=== PATIENT | female | born 1970 | race Caucasian/White ===

== ENCOUNTER → 2017-03-02 | Outpatient (CLI) | payer OTHER ==
--- NOTE | 2017-03-02 21:55 | MR ---
EXAMINATION TYPE: MR cervical spine wo con DATE OF EXAM: 03/02/2017 COMPARISON: Prior MR cervical spine 09/02/2014 HISTORY: Neck pain, headaches, juanjo arm weakness TECHNIQUE: Multiplanar, multisequence images of the cervical spine were acquired. C2-C3: Right posterior paracentral extension endplate disc complex causes minimal anterolateral mass effect on the thecal sac. No significant foraminal encroachment or central stenosis. C3-C4: Small central posterior disc bulge causes minimal anterior mass effect on the thecal sac as on prior exam. No significant central stenosis or foraminal encroachment. C4-C5: Minimal posterior central disc bulge causes slight anterior mass effect on the thecal sac. No significant central stenosis. C5-C6: Small central posterior disc bulge causes slight anterior mass effect on the thecal sac. No si gnificant central stenosis. No foraminal encroachment. C6-C7: Small central posterior disc bulge causes only slight anterior mass effect on the thecal sac. C7-T1: No evidence for degenerative disc disease. No disc bulge/herniation or protrusion. No Canal stenosis. Foramina are patent bilaterally. Cervical segments are intact. There is normal alignment. Cervical spinal cord is of normal signal. Craniovertebral junction relationships are within normal limits. IMPRESSION: Essentially stable exam. No significant central stenosis, foraminal encroachment. Mild posterior disc bulge is greatest at C6-7, C5-6
== END | disposition home or self-care (01) ==
LOC: RADMRIMAIN 19:30
PROVIDERS: ATTEND Psychiatry & Neurology Neurology
DX: M50.21 Other cervical disc displacement, high cervical region (principal); Z88.1 Allergy status to other antibiotic agents
CPT/HCPCS: 72141

== ENCOUNTER → 2019-09-13 | Outpatient (CLI) | payer OTHER ==
[2019-09-13 13:20] LABS: Basophils % (A) 1 %; Eosinophils # (A) 0.1 k/uL (0-0.7); Eosinophils % (A) 1 %; HCT 45.2 % (34.0-46.0); HGB 14.5 gm/dL (11.4-16.0); Lymphocytes # (A) 1.3 k/uL (1.0-4.8); Lymphocytes % (A) 18 %; MCH 30.4 pg (25.0-35.0); MCV 95.1 fL (80.0-100.0); Mean Platelet Volume 7.2; Monocytes # (A) 0.3 k/uL (0-1.0); Monocytes % (A) 4 %; Neutrophils # (A) 5.6 k/uL (1.3-7.7); Neutrophils % (A) 76 %; Platelet Count 237 k/uL (150-450); RBC 4.76 m/uL (3.80-5.40); RDW 13.2 % (11.5-15.5); WBC 7.4 k/uL (3.8-10.6)
== END | disposition home or self-care (01) ==
LOC: LABWHC1 12:07
PROVIDERS: ATTEND Obstetrics & Gynecology Obstetrics
DX: Z01.818 Encounter for other preprocedural examination (principal); Z30.2 Encounter for sterilization; Z11.59 Encounter for screening for other viral diseases; N92.0 Excessive and frequent menstruation with regular cycle
CPT/HCPCS: 36415; 85025; 87635

== ENCOUNTER → 2019-09-17 | Day surgery (SDC) | payer OTHER ==
[2019-09-11 14:40] VITALS: BMI 29.2
--- NOTE | 2019-09-12 09:50 | P.HPOB ---
History of Present Illness H&P Date: 09/12/19 Chief Complaint: menorrhagia This is a pleasant 48yo female with c/o heavy menstrual bleeding. she states the flow has been worsening over the last few months. her menses can be irregular in nature and last for up to 7 days. she had a TVUS at [facility] revelaing a 10 cm uterus and no discrete fibroids. she does elect H DC EA for treatment of her HMB. she isnt currently using any form of contraception and TL at the time of EA is discussed as well Review of Systems Constitutional: Denies chills, Denies fatigue, Denies fever, Denies lethargy Ears, nose, mouth and throat: Denies headache Cardiovascular: Denies edema Respiratory: Denies dyspnea Gastrointestinal: Denies constipation, Denies diarrhea, Denies nausea, Denies vomiting Genitourinary: Reports Menstruation: Reports cycle variable, Reports menses 1-7 days, Reports period heavy Past Medical History Past Medical History: Diabetes Mellitus, Eye Disorder, Osteoarthritis (OA), Thyroid Disorder Additional Past Medical History / Comment(s): Migraines,dx at [facility] with [place] disease, ddd, 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 breast bx. Past Anesthesia/Blood Transfusion Reactions: No Reported Reaction Additional Past Anesthesia/Blood Transfusion Reaction / Comment(s): mom had blood transfusion and received hepatitis C Smoking Status: Former smoker - Past Family History Father Family Medical History: Cancer Additional Family Medical History / Comment(s): Father at age 47 from complications from a motor vehicle accident. Mother Family Medical History: Diabetes Mellitus, Liver Disease, Thyroid Disorder Additional Family Medical History / Comment(s): Mother is alive at age 65 with history of diabetes, hypothyroidism, lupus,hepatitis C. maternal grandmother- hx of uterine breast,lung ca. maternal grandfather-hx throat and lung ca Brother(s) Additional Family Medical History / Comment(s): Patient has 1 brother that is addicted to drugs she does not have any sisters. She has 4 children of her own that are healthy. Medications and Allergies Home Medications Medication Instructions Recorded Confirmed Type Levothyroxine Sodium [Synthroid] 137 mcg PO DAILY 04/29/15 09/11/19 History Allergies Allergy/AdvReac Type Severity Reaction Status Date / Time cephalexin monohydrate Allergy Unknown Verified 09/11/19 14:03 [From Keflex] Exam Osteopathic Statement: *. No significant issues noted on an osteopathic structural exam other than those noted in the History and Physical/Consult. - OBG Physical Exam Abdomen: abdomen soft and non tender no masses are appreciated. Abdomen: bowel sounds normal Vulva: both: normal Vagina: normal appearing for age. Cervix: normal appearing with no masses Uterus: enlarged, no nodular Adnexa: both: normal Anus/Rectum: normal perianal skin Assessment and Plan (1) Menorrhagia Status: Acute Code(s): N92.0 - EXCESSIVE AND FREQUENT MENSTRUATION WITH REGULAR CYCLE SNOMED Code(s): 524801962 (2) Enlarged uterus Status: Acute Code(s): N85.2 - HYPERTROPHY OF UTERUS SNOMED Code(s): 289016067 (3) Family planning Status: Acute Code(s): Z30.09 - ENCOUNTER FOR OTH GENERAL CNSL AND ADVICE ON CONTRACEPTION SNOMED Code(s): 510153364 Plan: this pleasant 49 yo presented to the office with complaints of HMB, after discussion on treatment options she elected H DC EA. she understands that this isnt contraception and she will also need a definitive form of contraception. She elects LTL at the time of surgery as well. US reviewed with pt in detail as well. risk of surgery reviewed in detail including but not limited to infection bleeding damage to bladder bowel or ureteric injury. she states understanding and wishes to proceed with surgery.
[~2019-09-17] MED LIST: ACETAMINOPHEN IV (For NPO) 1,000 MG in EMPTY BAG 1 BAG IVPB ONE; BUPIVACAINE (PF) 0.25% 30 ML VIAL SQ ONE; DEXAMETHASONE SOD PHOSPHATE 10 MG/ML 1 ML VIAL IV ONE; GLYCOPYRROLATE 0.2 MG/ML 2 ML VIAL ONE; HYDROcodone/APAP 5-325MG 1 EACH TAB PO ONE; KETOROLAC 30 MG/ML 1 ML VIAL ONE; LACTATED RINGERS 1,000 ML IV ONE; LACTATED RINGERS 1,000 ML IV SCH; LIDOCAINE 1% (10MG/ML) FOR IV START INTRADERMA PRN; LIDOCAINE 1% INJ 10MG/ML (20 ML MDV) ONE; MIDAZOLAM 2 MG/2 ML VIAL IV PRN; MIDAZOLAM 2 MG/2 ML VIAL ONE; NEOSTIGMINE 1 MG/ML 10 ML VIAL ONE; ONDANSETRON 4 MG/2 ML VIAL IVP ONE; PROPOFOL 10 MG/ML 20 ML VIAL IV ONE; Pre Op ABX Message 1 EACH MISC MISCELLANE ONE; ROCURONIUM BROMIDE 10 MG/ML 5 ML VIAL IV ONE; SUCCINYLCHOLINE CHLORIDE 100 MG/5 ML SYR IV ONE; diphenhydrAMINE 50 MG/ML 1 ML VIAL IVP ONE; fentaNYL (PF) 50 MCG/ML 2 ML AMP IV PRN; fentaNYL (PF) 50 MCG/ML 2 ML AMP ONE
[2019-09-17 07:19] LABS: Glucose,Whole Blood 97 mg/dL (75-99)
--- NOTE | 2019-09-17 08:26 | P.OP ---
Date of Procedure: 09/17/19 Preoperative Diagnosis: Undesired fertility, menorrhagia Postoperative Diagnosis: Same Procedure(s) Performed: Laparoscopic tubal ligation with Filshie clips, hysteroscopy, dilation and curettage, endometrial ablation Anesthesia: ALLIEA Surgeon: Maria Victoria Farrell Estimated Blood Loss (ml): 5 IV fluids (ml): 500 Urine output (ml): 100 Pathology: other (Endometrial curettings) Condition: stable Disposition: PACU Indications for Procedure: This pleasant 49-year-old female presented to the office with complaints of heavy menstrual bleeding. Options were reviewed and patient elected endometrial ablation. Laparoscopic tubal ligation is discussed with the patient as a means for permanent sterilization given endometrial ablation. Patient stated understanding and elected to proceed. Risks of procedure were reviewed and patient stated understanding. Operative Findings: Enlarged uterine cavity at 10 cm, proliferative endometrium was noted on hysteroscopy, normal pelvic anatomy was appreciated on laparoscopy during tubal ligation. Right hemorrhagic cyst is appreciated. Description of Procedure: Patient in the preoperative area procedure is reviewed and all questions are a nswered. Risks were reviewed previously with this patient and patient denies concerns or questions. Patient was taken back to the operating suite where general anesthesia was obtained without difficulty by the anesthesia department. She was then prepped and draped in the normal sterile fashion in the dorsal lithotomy position. A regular catheter was used to drain the bladder clear yellow urine. A weighted speculum was placed in the posterior vaginal vault intralipids the cervix is visualized and grasped with single-tooth tenaculum and an acorn uterine manipulator was advanced into the cervix as a means to manipulate the uterus throughout the procedure. Attention was then turned the patient's abdomen where in the umbilical fold a small skin incision is made. A Veress needle is placed through the skin incision and toward the abdominal cavity. Once the Veress needle was deemed to be in the proper position with a drop of pressure with CO2 insufflation. Review liters of gas or used to obtain pneumoperitoneum. At this time the 5 mm trocar and sleeve with the laparoscope in place placed through this incision for the pneumoperitoneum. The above-noted findings were visualized. At this time and additional port site was placed in the right midportion of the abdomen and this was placed under direct visualization. The Filshie clip applicator was then placed through the trocar a nd the left fallopian tube is grasped and. This was repeated on the low side. No bleeding was noted from the fallopian tubes all instruments removed from the patient's abdomen. Incisions were closed with Vicryl in a subcapsular fashion. Steri-Strips and sterile dressings are applied. Attention then turned to the patient's vaginal vault the acorn uterine manipulator was removed the uterus was sounded to 10 cm. The endocervical canal was then dilated. Hysteroscope was placed through the cervix and toward the intracavity proliferative endometrium was noted. At this time the NovaSure device was opened and set the appropriate measurements. Cycle was allowed to complete after a cavity assessment was passed. After the cycle was completed the device was removed the anterior lip of the cervix was visualized after the single-tooth tenaculum was removed and hemostasis was appreciated. At this time all instruments removed the patient's vaginal vault Patient tolerated procedure well all counts are correct 2 and she was taken to the recovery room in stable condition.
[2019-09-17 08:33] VITALS: TEMP 97.7
[2019-09-17] MEDS: HYDROmorphone 0.5 MG/0.5 ML SYRINGE IVP PRN ×4 (08:49→09:30)
[2019-09-17 09:51] VITALS: BP 142/78; PULSE 58; RESP 17
== END ==
LOC: OR 06:29
PROVIDERS: ATTEND Obstetrics & Gynecology Obstetrics
DX: Z30.2 Encounter for sterilization (principal); N92.0 Excessive and frequent menstruation with regular cycle; N85.2 Hypertrophy of uterus; E07.9 Disorder of thyroid, unspecified; E11.9 Type 2 diabetes mellitus without complications; M19.90 Unspecified osteoarthritis, unspecified site; G43.909 Migraine, unspecified, not intractable, without status migrainosus; Z88.1 Allergy status to other antibiotic agents; Z87.891 Personal history of nicotine dependence; Z90.89 Acquired absence of other organs; Z98.890 Other specified postprocedural states; Z87.11 Personal history of peptic ulcer disease; Z79.890 Hormone replacement therapy; Z90.49 Acquired absence of other specified parts of digestive tract; Z80.9 Family history of malignant neoplasm, unspecified; Z83.3 Family history of diabetes mellitus; Z83.49 Family history of other endocrine, nutritional and metabolic diseases; Z80.3 Family history of malignant neoplasm of breast; Z80.1 Family history of malignant neoplasm of trachea, bronchus and lung; Z80.49 Family history of malignant neoplasm of other genital organs
CPT/HCPCS: 58671; 58563; J2250; J1200; J1100; J2710; J2405; J2001; J3010; J1885; J0131; J0330; J2704; J1170

== ENCOUNTER → 2020-03-16 | Outpatient (CLI) | payer OTHER | END | disposition home or self-care (01) | LOC: LABWHC1 11:14 | PROVIDERS: ATTEND Family Medicine | DX: R05 Cough (principal); J02.9 Acute pharyngitis, unspecified | CPT/HCPCS: U0003; C9803 ==